=== PATIENT | male | born 1995 | race African-American/Black ===

== ENCOUNTER 2016-08-27 16:41 | Emergency (ER) | payer BC ==
[2016-08-27 16:51] VITALS: TEMP 99.1
--- NOTE | 2016-08-27 18:00 | EDPHY ---
HPI/HX/ROS/PE/MDM Narrative: CHIEF COMPLAINT: "I think I have parasites" HISTORY OF PRESENT ILLNESS: The patient is a 21 y/o male complaining of diarrhea and abdominal pain that began while in [facility] one week ago. On Friday, he developed watery and non-bloody diarrhea on Friday, one week ago. He was having 5 episodes of diarrhea daily. Over the weekend, his diarrhea continued, but he developed associated generalized abdominal tenderness and bloating. He also developed rhinorrhea and cough. He had bloody diarrhea today. He denies consuming holloway or river water while in [place]. He doesn't remember if he received any vaccinations specific to the area. 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 No fever, chills, chest pain, shortness of breath, palpitations, vomiting, urinary complaints, headache, lightheadedness. REVIEW OF SYSTEMS: Aside from elements discussed in the HPI, a comprehensive 10-point review of systems was reviewed and is negative. 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 Recently in [place] for mission trip, VITAL SIGNS: Reviewed by me GENERAL: Well-developed, well-nourished, resting comfortably in no respiratory distress. HEENT: Atraumatic. Eyes: No icterus, no injection. Mouth: moist mucous membranes. No erythema or lesions. Neck: supple with no adenopathy. LUNGS: Clear to auscultation bilaterally, but slightly diminished, no wheezes, rhonchi or rales. CARDIAC: Regular rate and rhythm, no rubs, murmurs or gallops. ABDOMEN: Soft, pronounced abdominal distension, diffuse tenderness worst in RUQ and LUQ, bowel sounds normal. BACK: No CVA tenderness. EXTREMITIES: No trauma. No edema. Range of motion is normal throughout. NEURO: Alert and oriented, grossly nonfocal. SKIN: Warm and dry, no rash. PSYCHIATRIC: Normal mentation, no agitation. Portions of this note were transcribed by a medical director occupational health. I personally performed a history, physical exam, medical decision making, and confirmed accuracy of information the transcribed note. ED Course: IV established. Labs drawn including CBC, CHEM, LFTs. Stool sample requested from patient. Plan for quick bedside abdominal US. Procedure: Limited bedside ultrasound. Limited abdominal ultrasound was performed and interpreted by myself for the indication of: abdominal distension and pain 1) The right upper quadrant was visualized and was found to have trace intraperitoneal fluid. 2) The left upper quadrant was visualized and found to have trace intraperitoneal fluid. Limited pelvic ultrasound was conducted for abdominal distension. The bladder was distended with urine. The study was felt to be positive for trace free intraperitoneal fluid without significant ascites The procedure was performed by myself, Dr. Ferrari. Abdominal CT shows gastroenteritis. Patient has been unable to provide a stool sample here. He will be discharged home with standard diarrheal illness instructions and instructions on obtaining a stool sample to return here for testing. Return precautions discussed. He is comfortable with this plan. MDM: Differential diagnosis for the patient's diarrhea was considered including but not limited to gastroenteritis, colitis, diverticulitis, bacterial dysentery, viral diarrhea, medication effect, and malabsorption syndrome. - Data Points Imaging Results: Imaging Impressions Abdomen CT 08/27/16 18:02 Impression: 1. Mild to moderate fluid and gaseous distention of large and small bowel loops suggestive of enteritis. 2. No CT evidence of appendicitis, abscess or bowel obstruction. Findings discussed with Dot Ferrari MD at 19:16 hour, 08/27/2016. Imaging: Discussed imaging studies w/ call center operations manager Radiologist, I viewed and interpreted images myself Laboratory Results: Laboratory Results 08/27/16 17:50 08/27/16 17:50 08/27/16 08/27/16 08/27/16 20:00 17:50 17:50 WBC 12.45 10^3/uL H 10^3/uL (3.80-9.50) RBC 5.87 10^6/uL 10^6/uL (4.40-6.38) Hgb 14.3 g/dL g/dL (13.7-17.5) Hct 44.5 % % (40.0-51.0) MCV 75.8 fL L fL (81.5-99.8) MCH 24.4 pg L pg (27.9-34.1) MCHC 32.1 g/dL L g/dL (32.4-36.7) RDW 17.4 % H % (11.5-15.2) Plt Count 277 10^3/uL 10^3/uL (150-400) MPV 10.6 fL fL (8.7-11.7) Neut % (Auto) 77.8 % H % (39.3-74.2) Lymph % (Auto) 15.6 % % (15.0-45.0) Harrison % (Auto) 5.3 % % (4.5-13.0) Eos % (Auto) 0.7 % % (0.6-7.6) Baso % (Auto) 0.2 % L % (0.3-1.7) Nucleat RBC Rel Count 0.0 % % (0.0-0.2) Absolute Neuts (auto) 9.69 10^3/uL H 10^3/uL (1.70-6.50) Absolute Lymphs (auto) 1.94 10^3/uL 10^3/uL (1.00-3.00) Absolute Monos (auto) 0.66 10^3/uL 10^3/uL (0.30-0.80) Absolute Eos (auto) 0.09 10^3/uL 10^3/uL (0.03-0.40) Absolute Basos (auto) 0.02 10^3/uL 10^3/uL (0.02-0.10) Absolute Nucleated RBC 0.00 10^3/uL 10^3/uL (0-0.01) Immature Gran % 0.4 % % (0.0-1.1) Immature Gran # 0.05 10^3/uL 10^3/uL (0.00-0.10) Sodium 138 mEq/L mEq/L (134-144) Potassium 4.2 mEq/L mEq/L (3.5-5.2) Chloride 102 mEq/L mEq/L (97-110) Carbon Dioxide 21 mEq/l L mEq/l (22-31) Anion Gap 15 mEq/L mEq/L (8-16) BUN 6 mg/dL L mg/dL (7-23) Creatinine 0.9 mg/dL mg/dL (0.7-1.3) Estimated GFR > 60 Glucose 83 mg/dL mg/dL (70-100) Calcium 10.6 mg/dL H mg/dL (8.5-10.4) Total Bilirubin 1.1 mg/dL mg/dL (0.1-1.4) Conjugated Bilirubin 0.4 mg/dL mg/dL (0.0-0.5) Unconjugated Bilirubin 0.7 mg/dL mg/dL (0.0-1.1) AST 37 IU/L IU/L (17-59) ALT 70 IU/L IU/L (21-72) Alkaline Phosphatase 161 IU/L H IU/L (38-126) Total Protein 8.2 g/dL g/dL (6.3-8.2) Albumin 4.6 g/dL g/dL (3.5-5.0) Lipase 28.0 IU/L IU/L (23-300) Stool Concentration Pending Stool Occult Bld Scrn NEGATIVE (NEGATIVE) Stool Ova & Parasites SOFT RUBI STOOL Parasite Trichrome Pending Direct Microscop Exam NONE SEEN (NONE SEEN) Medications Given: Discontinued Medications Sodium Chloride (Ns) 1,000 mls @ 0 mls/hr IV ONCE ONE PRN Reason: Wide Open Stop: 08/27/16 18:02 Last Admin: 08/27/16 18:04 Dose: 1,000 mls General Time Seen by Provider: 08/27/16 17:42 Initial Vital Signs: Initial Vital Signs Temperature (C) 37.3 C 08/27/16 16:49 Heart Rate 61 08/27/16 16:49 Respiratory Rate 18 08/27/16 16:49 Blood Pressure 113/90 H 08/27/16 16:49 O2 Sat (%) 98 08/27/16 16:49 O2 Delivery Mode Room Air Allergies/Adverse Reactions: erythromycin base [From Pediazole] Allergy (Verified 08/27/16 16:48) sulfisoxazole [From Pediazole] Allergy (Verified 08/27/16 16:48) Home Medications: Medication Instructions Recorded NK [No Known Home Meds] 08/27/16 Departure - Departure Disposition: Home, Routine, Self-Care Clinical Impression: Dehydration, Enteritis Condition: Good Instructions: Acute Abdominal Pain (ED), Enteritis (ED) Additional Instructions: 1. Increase fluid intake. 2. Follow a bland diet until symptoms improve. For your abdominal pain, bloating, and diarrhea, I suggested you start with a bland diet and advance as tolerated. This means start with clear liquids such as water, Gatorade, juice, flat non- caffeinated soda. If you tolerate clear liquids, then you may add bland foods such as bananas, rice, or toast. If you do not have any worsening of your symptoms, you may begin to resume a regular diet. 3. Return a stool sample here for testing at your earliest convenience. 4. Return to the ED for any worsening of condition. Referrals: Ashley Mast MD [Medical Doctor] - As per Instructions Report Scribed for: Dot Ferrari Report Scribed by: Trinity Valiente Date of Report: 08/27/16 Time of Report: 18:01
[2016-08-27] MEDS ORDERED: NS 1,000 ML IV ONE (18:01)
[2016-08-27 18:08] LABS: % IMMATURE GRANULYOCYTES 0.4 % (0.0-1.1); ABSOLUTE IMMATURE GRANULOCYTES 0.05 10^3/uL (0.00-0.10); ADD DIFF? NO; ADD MORPH? NO; ADD SCAN? NO; ATYPICAL LYMPHOCYTE FLAG 80 (0-99); FRAGMENT RBC FLAG 0 (0-99); HEMATOCRIT 44.5 % (40.0-51.0); HEMOGLOBIN 14.3 g/dL (13.7-17.5); LEFT SHIFT FLG 0 (0-99); LIPEMIA HEMOLYSIS FLAG 80 (0-99); MEAN CELL HEMOGLOBIN 24.4 pg (27.9-34.1); MEAN CELL HEMOGLOBIN CONCENTR. 32.1 g/dL (32.4-36.7); MEAN CELL VOLUME 75.8 fL (81.5-99.8); MEAN PLATELET VOLUME 10.6 fL (8.7-11.7); PLATELET CLUMPS FLAG 20 (0-99); PLATELET COUNT 277 10^3/uL (150-400); RED BLOOD CELL COUNT 5.87 10^6/uL (4.40-6.38); RED CELL DISTRIBUTION WIDTH 17.4 % (11.5-15.2)
[2016-08-27 18:39] LABS: ALANINE AMINOTRANSFERASE 70 IU/L (21-72); ALBUMIN 4.6 g/dL (3.5-5.0); ALKALINE PHOSPHATASE 161 IU/L (38-126); ANION GAP 15 mEq/L (8-16); ASPARTATE AMINOTRANSFERASE 37 IU/L (17-59); BILIRUBIN,TOTAL 1.1 mg/dL (0.1-1.4); BILIRUBIN-CONJUGATED 0.4 mg/dL (0.0-0.5); BILIRUBIN-UNCONJUGATED 0.7 mg/dL (0.0-1.1); CALCIUM 10.6 mg/dL (8.5-10.4); CARBON DIOXIDE 21 mEq/l (22-31); CHLORIDE 102 mEq/L (97-110); CREATININE 0.9 mg/dL (0.7-1.3); GLOMERULAR FILTRATION RATE > 60; GLUCOSE 83 mg/dL (70-100); POTASSIUM 4.2 mEq/L (3.5-5.2); SODIUM 138 mEq/L (134-144); TOTAL PROTEIN 8.2 g/dL (6.3-8.2)
[2016-08-27] MEDS ORDERED: IOPAMIDOL (ISOVUE-300) 100 ML BTL ONE (18:40)
[2016-08-27 20:11] VITALS: BP 138/81; PULSE 68; RESP 16; O2SAT 95
[2016-08-27 20:27] LABS: OCCULT BLOOD FECES NEGATIVE (NEGATIVE)
[2016-08-27 20:35] LABS: O/P DESCRIPTION SOFT TAN STOOL; O/P DIRECT NONE SEEN (NONE SEEN)
[2016-08-28 19:35] LABS: O/P CONCENTRATION NONE SEEN (NONE SEEN)
[2016-08-29 16:25] LABS: O/P TRICHROME NONE SEEN (NONE SEEN)
== END 2016-08-27 20:11 | disposition home or self-care (01) ==
DX: K52.9 Noninfective gastroenteritis and colitis, unspecified (principal); E86.0 Dehydration
CPT/HCPCS: Q9967

== ENCOUNTER 2017-09-08 13:38 | Emergency (ER) | payer BC ==
--- NOTE | 2017-09-08 15:01 | EDPHY ---
H & P Time Seen by Provider: 09/08/17 14:52 HPI/ROS: CHIEF COMPLAINT: A sore throat HISTORY OF PRESENT ILLNESS: The patient is a 22-year-old male who presents emergency department with ongoing sore throat. The patient states he was diagnosed with strep throat last week while in [place]. Patient was studying abroad in [place]. Patient now is in [place]. He flew home on Friday. He has continued to have a sore throat. He describes it as moderate. It is worse with swallowing. Bilateral. He is tolerating his secretions. No shortness of breath. He previously had a fever but that is resolved. No rash. No abdominal pain. No nausea vomiting. REVIEW OF SYSTEMS: My complete review of systems is negative except as mentioned in the HPI. Past Medical/Surgical History: Includes asthma, parasite Smoking Status: Never smoked Physical Exam: Vitals noted GENERAL: Well-appearing, in no acute distress, alert. HEENT: Eyes normal to inspection, no signs of dehydration. Patient has mild pharyngeal erythema. There are few white lesions. Uvula is midline. There is no asymmetry. No visible mass. NECK: No thyromegaly, mild bilateral anterior lymphadenopathy, supple. RESPIRATORY: Clear to auscultation bilaterally, no rales, rhonchi or wheezing. CVS: Regular rate and rhythm, no rubs, murmurs, or gallops. ABDOMEN: Soft, nontender, nondistended, no organomegaly. BACK: Normal to inspection, no CVA tenderness. SKIN: Normal color, no rash, warm, dry. No pallor. EXTREMITIES: No pedal edema, no calf tenderness, no Homans sign or cords, no joint swelling. NEURO/PSYCH: Alert and oriented, normal mood and affect, normal motor sensory exam. Constitutional: Initial Vital Signs Temperature (C) 37 C 09/08/17 13:52 Heart Rate 83 09/08/17 13:52 Respiratory Rate 16 09/08/17 13:52 Blood Pressure 123/78 H 09/08/17 13:52 O2 Sat (%) 95 09/08/17 13:52 O2 Delivery Mode Room Air Allergies/Adverse Reactions: erythromycin base [From Pediazole] Allergy (Verified 09/08/17 13:50) sulfisoxazole [From Pediazole] Allergy (Verified 09/08/17 13:50) Home Medications: Medication Instructions Recorded Clindamycin HCl [Clindamycin] 300 mg PO TID #30 cap 09/08/17 Ibuprofen 09/08/17 Penicillin VK 09/08/17 Medical Decision Making ED Course/Re-evaluation: In the emergency department I discussed possible etiologies with the patient. I answered all his questions. I reviewed the patient's medications from [place].. He was on penicillin. Patient will be started on clindamycin. Discussed this with the patient. Patient was given warnings. He will return with worsening symptoms. Differential Diagnosis: My differential includes but is not limited to pharyngitis, strep pharyngitis, retropharyngeal abscess, peritonsillar abscess, viral illness, dehydration, epiglottitis, tracheitis Departure - Departure Disposition: Home, Routine, Self-Care Clinical Impression: Acute pharyngitis Condition: Good Instructions: Pharyngitis (ED) Additional Instructions: Take your entire course of antibiotics. Return with increasing pain, fever or any other concerns. You been given follow-up information with ENT Throat specialist. Call to make an appointment if needed. Referrals: Kong Jackson MD [Medical Doctor] - 5-7 days, if not improved Prescriptions: Clindamycin HCl [Clindamycin] 300 mg PO TID #30 cap
[2017-09-08] MEDS ORDERED: DEXAMETHASONE 4 MG TAB PO ONE (15:03)
[2017-09-08 15:23] VITALS: BP 122/74
== END 2017-09-08 15:27 | disposition home or self-care (01) ==
DX: J02.9 Acute pharyngitis, unspecified (principal); J45.909 Unspecified asthma, uncomplicated